=== PATIENT | female | born 1980 | race Caucasian/White ===

== ENCOUNTER → 2018-10-06 | Outpatient (CLI) | payer OTHER ==
[2018-10-06 08:41] LABS: BASOPHIL % 0.5 % (0-2); PLATELET COUNT 303 x10^3mcL (130-400); RED CELL DISTRIBUTION WIDTH 13.3 % (11.5-14.5)
[2018-10-06 09:07] LABS: ALBUMIN 3.7 g/dL (3.4-5.0); ALKALINE PHOSPHATASE 74 U/L (46-116); ALT/SGPT 26 U/L (14-59); AST/SGOT 16 U/L (15-37); BILIRUBIN TOTAL 0.26 mg/dL (0.20-1.00); CARBON DIOXIDE 27.5 mmol/L (21-32); CHLORIDE SERUM 103 mmol/L (98-107); CHOLESTEROL 178 mg/dL (<200); CREATININE SERUM 0.5 mg/dL (0.6-1.0); GFR1 > 60 mL/min; GLUCOSE SERUM 81 mg/dL (74-106); POTASSIUM SERUM 4.1 mmol/L (3.5-5.1); SODIUM SERUM 141 mmol/L (136-145); TOTAL PROTEIN, SERUM 7.2 g/dL (6.4-8.2); TRIGLYCERIDES 59 mg/dL (<150)
[2018-10-06 09:08] LABS: CHOLESTEROL/HDL RATIO 2.3; HDL CHOLESTEROL 76 mg/dL (40-60)
== END | disposition home or self-care (01) ==
LOC: LB 08:16
DX: Z00.01 Encounter for general adult medical examination with abnormal findings (principal)